=== PATIENT | male | born 1985 | race Caucasian/White ===

== ENCOUNTER 2018-02-06 17:01 | Emergency (ER) | payer SELFPAY ==
[~2018-02-06] VITALS: Ht 154.9 cm; Wt 56.7 kg
[2018-02-06 17:01] VITALS: Ht 154.9 cm; Wt 56.7 kg
[~2018-02-06 17:01] MED LIST: GABA-113 PO; IBUP-1050 PO
[2018-02-06] MEDS ORDERED: ACETAMINOPHEN 500 MG TAB PO STA (17:31)
--- NOTE | 2018-02-06 17:40 | EMERGENCY ROOM VISIT NOTE ---
History First contact with patient: 17:15 Chief Complaint: ABDOMINAL PAIN Stated Complaint: BACK PAIN Nursing Triage Summary: Patient arrived via BLS from home. Patient has back pain from misaligned spine. Patient c/o abdominal pain after getting home from work today at noon. Nausea associated, denies vomitting. Patient c/o eyes burning and CP, denies SOB. History of Present Illness The patient is a 32 year old male who presents to the Emergency Room with complaints of all over pain that started at 11 AM this morning. The history is limited secondary to possible mental delay versus altered mental status. The patient is complaining of a headache, back pain and abdominal pain. He denies any vomiting. He does occasionally have constipation. He denies any sick contacts. Review of Systems Unable to perform secondary to altered mental status versus mental delay Past Medical/Surgical History Medical Problems: (1) Hernia (2) Hypertension (3) Shingles Family History Diabetes mellitus Hypertension Social History Smoking Status: Former Smoker Drug Use: none Marital Status: single Occupation Status: employed Current/Historical Medications Scheduled PRN Hydrocodone/Acetaminophen 5MG/325MG ([place] 5MG/325MG), 1-2 TABLET PO Q4H PRN for Pain Physical Exam Vital Signs Date Time Temp Pulse Resp B/P (MAP) Pulse Ox O2 Delivery O2 Flow Rate FiO2 02/06/18 23:19 59 18 102/61 97 Room Air 02/06/18 20:57 37.5 02/06/18 20:54 72 18 107/62 96 Room Air 02/06/18 19:25 38.9 02/06/18 18:22 80 18 117/71 98 Room Air 02/06/18 17:01 38.7 85 18 119/68 98 Room Air Physical Exam VITALS: Vitals are noted on the nurse's note and reviewed by myself. Vital signs stable. GENERAL: 32-year-old male, speech is slightly slurred and slow SKIN: The skin was without rashes, erythema, edema, or bruising. HEAD: Normocephalic atraumatic. EYES: Pupils equal round and reactive to light and accommodation. Conjunctivae without injection, sclerae without icterus. Extraocular movements intact. MOUTH: Mucous membranes slightly dry NECK: Supple without nuchal rigidity. No lymphadenopathy. Cervical spine is nontender. No JVD. HEART: Regular rate and rhythm without murmurs gallops or rubs. LUNGS: Clear to auscultation bilaterally without wheezes, rales or rhonchi. No accessory muscle use. ABDOMEN: Positive bowel sounds x 4.Soft, mild diffuse tenderness to palpation, without organomegaly. No guarding or rebound tenderness. MUSCULOSKELETAL: No muscle atrophy, erythema, or edema noted.. Strength 5/5 throughout. NEURO: Patient was alert and oriented to person place and time. His speech is slurred. He does follow basic commands. Medical Decision & Procedures ER Provider Diagnostic Interpretation: CT abdomen and pelvis IMPRESSION: 1. Mild circumferential bladder wall thickening suggested. This could suggest cystitis. Correlate with urinalysis. Hyperenhancement of the bulbar urethra would also be compatible with the diagnosis of infectious cystitis/urethritis. 2. No other evidence of acute intra-abdominal pathology. Electronically signed by: Layton Yi M.D. 02/06/2018 9:22 PM Dictated Date/Time: 02/06/2018 9:17 PM The status of this report is Signed. Draft = Not yet reviewed or approved by Radiologist. Signed = Reviewed and approved by Radiologist. CT head IMPRESSION: 1. No acute intracranial abnormality. Electronically signed by: Layton Yi M.D. 02/06/2018 9:00 PM Dictated Date/Time: 02/06/2018 8:58 PM CXR IMPRESSION: 1. No acute cardiopulmonary disease. Electronically signed by: Layton Yi M.D. 02/06/2018 6:05 PM Dictated Date/Time: 02/06/2018 6:05 PM The status of this report is Signed. Draft = Not yet reviewed or approved by Radiologist. Signed = Reviewed and approved by Radiologist. <AttendingPhy></AttendingPhy> <FamilyPhy>Lashonda Casillas M.D. (MEDICAL)</ FamilyPhy> <PrimaryPhy>Lashonda Casillas M.D. (MEDICAL)</PrimaryPhy> <UnitNumber> [id number]</UnitNumber> <VisitNumber Laboratory Results 02/06/18 17:18 Red Blood Count 4.92, Mean Corpuscular Volume 86.8, Mean Corpuscular Hemoglobin 30.9, Mean Corpuscular Hemoglobin Concent 35.6, Mean Platelet Volume 10.0, Neutrophils (%) (Auto) 87.0, Lymphocytes (%) (Auto) 6.3, Monocytes (%) (Auto) 6.5, Eosinophils (%) (Auto) 0.0, Basophils (%) (Auto) 0.1, Neutrophils # (Auto) 8.91, Lymphocytes # (Auto) 0.64, Monocytes # (Auto) 0.66, Eosinophils # (Auto) 0.00, Basophils # (Auto) 0.01 02/06/18 17:18 Test 02/06/18 17:18 02/06/18 17:39 02/06/18 19:21 02/06/18 20:42 White Blood Count 10.23 K/uL (4.8-10.8) Red Blood Count 4.92 M/uL (4.7-6.1) Hemoglobin 15.2 g/dL (14.0-18.0) Hematocrit 42.7 % (42-52) Mean Corpuscular Volume 86.8 fL (80-100) Mean Corpuscular Hemoglobin 30.9 pg (25-34) Mean Corpuscular Hemoglobin Concent 35.6 g/dl (32-36) Platelet Count 186 K/uL (130-400) Mean Platelet Volume 10.0 fL (7.4-10.4) Neutrophils (%) (Auto) 87.0 % Lymphocytes (%) (Auto) 6.3 % Monocytes (%) (Auto) 6.5 % Eosinophils (%) (Auto) 0.0 % Basophils (%) (Auto) 0.1 % Neutrophils # (Auto) 8.91 K/uL (1.4-6.5) Lymphocytes # (Auto) 0.64 K/uL (1.2-3.4) Monocytes # (Auto) 0.66 K/uL (0.11-0.59) Eosinophils # (Auto) 0.00 K/uL (0-0.5) Basophils # (Auto) 0.01 K/uL (0-0.2) RDW Standard Deviation 38.8 fL (36.4-46.3) RDW Coefficient of Variation 12.2 % (11.5-14.5) Immature Granulocyte % (Auto) 0.1 % Immature Granulocyte # (Auto) 0.01 K/uL (0.00-0.02) Anion Gap 3.0 mmol/L (3-11) Est Creatinine Clear Calc Drug Dose 81.7 ml/min Estimated GFR () 120.7 Estimated GFR (Non- 104.2 BUN/Creatinine Ratio 8.2 (10-20) Calcium Level 8.7 mg/dl (8.5-10.1) Total Bilirubin 1.0 mg/dl (0.2-1) Aspartate Amino Transf (AST/SGOT) 15 U/L (15-37) Alanine Aminotransferase (ALT/SGPT) 23 U/L (12-78) Alkaline Phosphatase 38 U/L (45-117) Total Creatine Kinase 171 U/L (39-308) Total Protein 7.1 gm/dl (6.4-8.2) Albumin 3.9 gm/dl (3.4-5.0) Globulin 3.2 gm/dl (2.5-4.0) Albumin/Globulin Ratio 1.2 (0.9-2) Bedside Lactic Acid Venous 1.07 mmol/L (0.90-1.70) Urine Color YELLOW Urine Appearance CLEAR (CLEAR) Urine pH 8.0 (4.5-7.5) Urine Specific [place] 1.007 (1.000-1.030) Urine Protein NEG (NEG) Urine Glucose (UA) NEG (NEG) Urine Ketones NEG (NEG) Urine Occult Blood NEG (NEG) Urine Nitrite NEG (NEG) Urine Bilirubin NEG (NEG) Urine Urobilinogen NEG (NEG) Urine Leukocyte Esterase NEG (NEG) Urine Opiates Screen POS (NEG) Urine Methadone, Qualitative NEG (NEG) Urine Barbiturates NEG (NEG) Urine Phencyclidine (PCP) Level NEG (NEG) Ur Amphetamine/Methamphetamine NEG (NEG) MDMA (Ecstasy) Screen NEG (NEG) Urine Benzodiazepines Screen NEG (NEG) Urine Cocaine Metabolite NEG (NEG) Urine Marijuana (THC) NEG (NEG) Lactic Acid Level 0.7 mmol/L (0.4-2.0) Test 02/06/18 22:20 CSF Color COLORLESS CSF Appearance CLEAR CSF WBC 1 /uL (0-5) CSF RBC 0 /uL (0) CSF Xanthrochromic NO XANTHOCHROMIA CSF Cell Count Tube # 4 CSF Chemistry Tube # 2 CSF Glucose 68 mg/dl (40-70) CSF Total Protein 34.5 mg/dl (15.0-45.0) Medications Administered Medications (Trade) Dose Ordered Sig/Tim Route Start Time Stop Time Status Last Admin Dose Admin Acetaminophen (Tylenol Tab) 1,000 mg NOW STAT PO 02/06/18 17:31 02/06/18 17:36 DC 02/06/18 18:20 1,000 MG Morphine Sulfate (MoRPHine SULFATE INJ) 4 mg Q1H PRN IV 02/06/18 17:45 02/07/18 00:21 DC 02/06/18 23:20 4 MG Sodium Chloride 1,000 ml @ 999 mls/hr Q1H1M ONCE IV 02/06/18 17:45 02/06/18 18:45 DC 02/06/18 18:21 999 MLS/HR Ketorolac Tromethamine (Toradol Inj) 30 mg NOW STAT IV 02/06/18 20:41 02/06/18 20:42 DC 02/06/18 20:51 30 MG ED Course Patient was seen and examined Vital signs including blood pressure were reviewed medications list was verified with patient Labs were obtained, and a saline lock was established The patient was medicated with Tylenol and morphine The patient was reassessed and more comfortable. We discussed the results of his workup. He voiced understanding. The case was also discussed with my supervising physician, Dr. Miller. A lumbar puncture was performed. Please see her note. Upon reassessment, the patient was requesting another dose of pain medication. He was given 1 more dose of morphine. We thoroughly reviewed his results. He voiced understanding. I reviewed discharge instructions the patient. They voiced understanding and had no further questions. Medical Decision Differential diagnosis: Infectious etiologies such as meningitis, encephalitis, bacterial tonsillitis, otitis media, appendicitis, choledocholithiasis, UTI, drug overdose were entertained among others This patient is a 32-year-old male presents to the emergency department with complaints of generalized pain. On exam, the patient's speech seemed to be slightly slurred. When his friend got to the bedside, he said that his mental status/speech were at baseline. The patient had good pain relief in the emergency department. A CT of the abdomen and pelvis revealed possible bladder wall inflammation. The patient's urinalysis is clean. He is not sexually active, and has not been for many years. I do not suspect STD. The etiology of his fever is unclear. Lumbar puncture was performed. No signs of meningitis. He had symptomatic relief in the emergency department. I advised very close follow-up with his primary care physician. He was also referred to a urologist for his CT scan findings. He was comfortable with this plan, and discharged in good condition This chart was completed in part utilizing [employer] Speech Voice Recognition software. Attempts were made to minimize the grammatical errors, random word insertions, pronoun errors and incomplete sentences. Any formal questions or concerns about the content, text or information contained within the body of this dictation should be directly addressed to the provider for clarification. Medication Reconcilliation Current Medication List: was personally reviewed by me Blood Pressure Screening Patient's blood pressure: Normal blood pressure Impression Primary Impression: Generalized pain Departure Information Dispostion Home / Self-Care Condition GOOD Prescriptions Hydrocodone/Acetaminophen 5MG/325MG ([place] 5MG/325MG) Tab 1-2 TABLET PO Q4H Y for Pain, #15 TAB For Initial Treatment Prov: Iza Cooley PA-C 02/06/18 Referrals Lashonda Casillas M.D. (MEDICAL) (PCP) Patient Instructions My [facility] Additional Instructions You were evaluated in the emergency department for pain. There was slight inflammation of the bladder on the CAT scan. Ibuprofen 600 mg every 6 hours for pain/fever [place] 1-2 tabs every 4 hours for severe pain. Do not drink alcohol or drive while taking this medication. This may be taken with ibuprofen, but avoid Tylenol. Please get plenty of rest and drink fluids such as Gatorade and water over the next several days It is very important to follow-up closely with your primary care physician. Please call first thing Thursday morning for a follow-up appointment. Please do not hesitate to return to the emergency department with any new, worsening or concerning symptoms It was a pleasure participating in your care today
[2018-02-06 17:45] LABS: BASO % 0.1 %; BASO ABS # 0.01 K/uL (0-0.2); HEMATOCRIT 42.7 % (42-52); HEMOGLOBIN 15.2 g/dL (14.0-18.0); IG# 0.01 K/uL (0.00-0.02); LYMPH % 6.3 %; LYMPH ABS # 0.64 K/uL (1.2-3.4); MEAN CELL VOLUME 86.8 fL (80-100); MEAN CORPUSCULAR HEMOGLOBIN 30.9 pg (25-34); MEAN CORPUSCULAR HGB CONC 35.6 g/dl (32-36); MONO % 6.5 %; MONO ABS # 0.66 K/uL (0.11-0.59); NEUT ABS # 8.91 K/uL (1.4-6.5); PLATELET COUNT 186 K/uL (130-400); RED CELL DISTRIBUTION WIDTH CV 12.2 % (11.5-14.5); RED CELL DISTRIBUTION WIDTH SD 38.8 fL (36.4-46.3); WHITE BLOOD COUNT 10.23 K/uL (4.8-10.8)
[2018-02-06] MEDS ORDERED: SODIUM CHLORIDE 0.9% 1000ML 1,000 ML IV ONE (17:45)
[2018-02-06] MEDS ORDERED: OPTIRAY 320 IV PRN (17:45)
[2018-02-06 17:55] LABS: ALBUMIN 3.9 gm/dl (3.4-5.0); CALCIUM 8.7 mg/dl (8.5-10.1); CREATININE 0.96 mg/dl (0.60-1.40); POTASSIUM 3.5 mmol/L (3.5-5.1)
[2018-02-06 17:58] LABS: TOTAL PROTEIN 7.1 gm/dl (6.4-8.2)
--- NOTE | 2018-02-06 18:06 | DIAGNOSTIC IMAGING REPORT ---
CHEST ONE VIEW PORTABLE CLINICAL HISTORY: 32 years-old Male presenting with fever. TECHNIQUE: Portable upright AP view of the chest was obtained. COMPARISON: None. FINDINGS: Cardiomediastinal silhouette normal. No focal opacity. No large effusion or pneumothorax. Osseous structures normal. Upper abdomen normal. IMPRESSION: 1. No acute cardiopulmonary disease. Electronically signed by: Layton Yi M.D. 02/06/2018 6:05 PM Dictated Date/Time: 02/06/2018 6:05 PM
[2018-02-06] MEDS: MoRPHine SULFATE 4 MG/ML 1 ML CARP\\VIAL IV PRN ×2 (18:20→23:20)
[2018-02-06] MEDS ORDERED: KETOROLAC TROMETHAMINE 30 MG/ML VIAL IV STA (20:41)
[2018-02-06] MEDS ORDERED: LIDOCAINE 1% BUFFERED INJ 5 ML VIAL INFIL ONE (20:45)
[2018-02-06 20:57] VITALS: TEMP 37.5
--- NOTE | 2018-02-06 21:02 | DIAGNOSTIC IMAGING REPORT ---
HEAD WITHOUT CONTRAST (CT) CLINICAL HISTORY: 32 years-old Male presenting with fever headache. TECHNIQUE: Multidetector CT imaging of the head was performed without the use of intravenous contrast. IV contrast: None. A dose lowering technique was used consistent with the principles of ALARA (as low as reasonably achievable). COMPARISON: None. CT DOSE (mGy.cm): The estimated cumulative dose is 825.67 mGy.cm. 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 Ventricles and sulci normal in size. Brain parenchyma normal in appearance with preserved mad[place]-white differentiation. No mass effect or midline shift. No hemorrhage or acute territorial infarct. No extra-axial fluid collection. Paranasal sinuses and mastoid air cells clear. Calvarium intact. IMPRESSION: 1. No acute intracranial abnormality. Electronically signed by: Layton Yi M.D. 02/06/2018 9:00 PM Dictated Date/Time: 02/06/2018 8:58 PM
--- NOTE | 2018-02-06 21:23 | DIAGNOSTIC IMAGING REPORT ---
ABD/PELVIS IV AND ORAL CONT CLINICAL HISTORY: 32 years-old Male presenting with fever abd pain. TECHNIQUE: Multidetector CT of the abdomen and pelvis was performed after the administration of oral and intravenous contrast. IV contrast: 94 mL of Optiray 320. A dose lowering technique was used consistent with the principles of ALARA (as low as reasonably achievable). COMPARISON: None. CT DOSE (mGy.cm): The estimated cumulative dose is 825.67. 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 Lung bases: Minimal basilar opacities, likely atelectasis. Normal heart size. No pericardial or pleural effusion. Liver: Normal morphology. No liver lesion. Patent hepatic vasculature. Biliary: No intrahepatic or extrahepatic biliary ductal dilatation. Normal gallbladder. Pancreas: Normal. Spleen: Normal. Adrenal glands: Normal. Kidneys and ureters: Normal. No hydronephrosis. Bladder: Circumferential bladder wall thickening. Pelvic organs: Prostate and seminal vesicles normal. Hyperenhancement of the bulbar urethra noted greater than expected. Bowel: Mild stool burden throughout the colon. The appendix is normal. No bowel obstruction. Peritoneal cavity: No free fluid or intraperitoneal gas. Lymph nodes: No enlarged lymph nodes in the abdomen or pelvis. Vasculature: Aorta and IVC patent and normal in caliber. Abdominal wall: Bilateral gynecomastia. Musculoskeletal: Normal. IMPRESSION: 1. Mild circumferential bladder wall thickening suggested. This could suggest cystitis. Correlate with urinalysis. Hyperenhancement of the bulbar urethra would also be compatible with the diagnosis of infectious cystitis/urethritis. 2. No other evidence of acute intra-abdominal pathology. Electronically signed by: Layton Yi M.D. 02/06/2018 9:22 PM Dictated Date/Time: 02/06/2018 9:17 PM
[2018-02-06 23:04] LABS: CSF GLUCOSE 68 mg/dl (40-70); CSF TOTAL PROTEIN 34.5 mg/dl (15.0-45.0)
--- NOTE | 2018-02-06 23:09 | EMERGENCY ROOM VISIT NOTE ---
ED Visit Note First contact with patient: 17:15 Lumbar Puncture Indication: Fever, headache Verbal consent was obtained after the risks and benefits were explained, including but not limited to headache, bleeding/clotting, scarring, infection, pain, and bone/joint/nerve damage. At this time, the risks of the procedure are less than the risks of NOT performing the procedure. A time out was taken and the correct patient and site identified. The patient was placed in the left lateral decubitus position and the back was prepped with betadine and draped in the standard fashion. The L3 intervertebral space was identified, anesthetized locally with 1% lidocaine without epinephrine, and the spinal needle was inserted through the skin with the bevel parallel to the dural fibers. The needle was carefully advanced into the lumbar cistern and 4 tubes of clear CSF was obtained. The stylet was replaced and the needle was removed. A bandaid was placed and the patient was placed in the supine position. The patient tolerated the procedure well and there were no complications.
[2018-02-06] MEDS ORDERED: HYDR-5688 PO (23:15)
[2018-02-06 23:19] VITALS: BP 102/61; PULSE 59; O2SAT 97
== END 2018-02-06 23:40 | disposition home or self-care (01) ==
LOC: C.EDB 17:01 → EDBD 17:01 → C.EDB 23:40
DX: R52 Pain, unspecified (principal); Z87.891 Personal history of nicotine dependence

== ENCOUNTER 2018-11-09 16:23 | Inpatient (IN) ==
[2018-11-09 17:11] LABS: Appearance Urine Clear (Clear); Bilirubin Urine Negative (Negative); Color Urine Yellow; Glucose Urine UA Negative (Negative); Ketones Urine Negative (Negative); Leukocyte Esterase Urine Negative (Negative); Nitrite Urine Negative (Negative); Protein Urine Negative (Negative); Specific Gravity Urine 1.021 (1.000-1.030); Urobilinogen Urine Negative (Negative)
[2018-11-09 17:35] LABS: Amphetamines+Metham, Urine Neg (Neg); Barbiturates, Urine Neg (Neg); Benzodiazepine, Urine Neg (Neg); Cocaine, Urine Neg (Neg); MDMA (Ecstacy), Urine Neg (Neg); Methadone, Urine Neg (Neg); Opiate, Urine Neg (Neg); Phencyclidine, Urine Neg (Neg)
[2018-11-09 18:05] LABS: Basophils # (auto) 0.02 K/uL (0-0.2); Basophils % (auto) 0.5 %; Eosinophils # (auto) 0.07 K/uL (0-0.5); Eosinophils % (auto) 1.7 %; Hematocrit (blood only) 39.9 % (42-52); Lymphocytes # (auto) 1.56 K/uL (1.2-3.4); Lymphocytes % (auto) 37.8 %; Mean Corpuscular Hgb Conc 35.1 g/dL (32-36); Mean Corpuscular Volume 87.1 fL (80-100); Mean Platelet Volume 10.9 fL (7.4-10.4); Monocytes # (auto) 0.38 K/uL (0.11-0.59); Monocytes % (auto) 9.2 %; Neutrophils % (auto) 50.8 %; Platelet Count 194 K/uL (130-400); RDW Coefficient of Variation 12.2 % (11.5-14.5); RDW Standard Deviation 38.7 fL (36.4-46.3); Red Blood Count 4.58 M/uL (4.7-6.1); White Blood Count 4.13 K/uL (4.8-10.8)
[2018-11-09 18:27] LABS: Albumin Level 3.5 gm/dl (3.4-5.0); BUN Creatinine Ratio 15.1 (10-20); Calcium 8.1 mg/dl (8.5-10.1); Creatinine Clr Calc Pharmacy 103.6 ml/min; Est GFR (African American) 139.7; Est GFR (Non-African American) 120.5; Potassium 3.3 mmol/L (3.5-5.1)
[2018-11-09 18:29] LABS: Acetaminophen < 2 ug/ml (10-30); Salicylate < 1.7 mg/dl (2.8-20)
[2018-11-09 18:37] LABS: Albumin Globulin Ratio 1.1 (0.9-2); Bilirubin,Total 0.4 mg/dl (0.2-1); Globulin 3.1 gm/dl (2.5-4.0); Total Protein 6.6 gm/dl (6.4-8.2)
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
[2018-11-09] MEDS ORDERED: MAGNESIUM HYDROXIDE SUSP 30 ML UDC PO PRN (19:12)
[2018-11-09] MEDS ORDERED: BISMUTH SUBSALICYLATE PER ML OMNICELL CHARGE PO PRN (19:12)
[2018-11-09] MEDS ORDERED: ALUMINUM/MAGNESIUM SUSP 30 ML UDC PO PRN (19:12)
[2018-11-09] MEDS ORDERED: ACETAMINOPHEN 325 MG TAB PO PRN (19:12)
[2018-11-09] MEDS ORDERED: SODIUM CHLORIDE 0.65% NA SOLN 45 ML (OCEAN) PRN (19:12)
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
--- NOTE | 2018-11-11 14:42 | Psychiatric Progress Note ---
Date of Service November 11, 2018 Impression / Recommendations Impression Edu is adjusting to the structure and support of the milieu, and finding his peers to be patient and kind. He is attending all groups saying that he is benefitting. He is not on meds at this point, and would like to continue so. Today he says he is not sure he is ready to go as his anxiety remains high, and I believe that he would benefit from ongoing talk therapy to reduce his anxiety to the point that he can function and return to work. (1) Major depress dis, severe: 11/10 -Most appropriate diagnosis at this time is adjustment disorder with depressed and anxious mood. -Differential includes MDD, bipolar II, PTSD. -Continue voluntary admission to the behavioral health unit. -Suicide checks for safety. -Attend to participate in groups and therapy, work on healthy coping skills and discharge safety plan. -Education provided regarding diagnosis and treatment options, including medications and therapy. Medications not necessarily indicated at this time given duration of symptoms. -Family meeting if indicated. -Refer for outpatient therapy. Monitor symptoms and continue to refine diagnosis. 11/10 - Improving, continue treatment. -Family meeting with friend from [facility]. -Refer for BCM and OP therapy. -Work on discharge safety plan and coping skills for urges to cut. 11/11 - Assist the patient to explore healthy coping strategies for anxiety - Continue with safety and aftercare planning Inventory Assets Strengths: Employed, willing for treatment Needs: Medication, outpatient therapy and psychiatric care Risk Factors Assessment Male: Yes : Yes Do You Have Access To A Gun?: No Health Problems: No Mental Health Diagnoses: Yes Substance Use Disorders: No Previous Attempt: Yes Family History of Suicide: Yes Previous Psychiatric Hospitalization: No Smoker: No Protective Factors Assessment : No Responsible for Young Children: No Employed: Yes Stable Relationships: No Supportive Family: No Good Rapport with Provider: No Interval History Identifying Information CINDY VELEZ is a 33-year-old M who currently lives in [place], has a history of ID, self injury by cutting, suicide attempt, and trauma but is not in psychiatric treatment, and was admitted on 11/09/18 19:12 on a 201 voluntary commitment for worsening mood and thoughts of harming himself. Chief Complaint "I'm doing pretty good.". Review of Systems Sleep Information Total Hours of Sleep: 5.5 Sleep Comments: pt on q-15 minute checks Meal Information Percent Meal Consumed - Breakfast: 100 Percent Meal Consumed - Lunch: 100 Percent Meal Consumed - Dinner: 100 Subjective Subjective Patient was seen & assessed and interval progress reviewed with Treatment Team. Edu says that he is appreciating being around the staff and peers who are willing to listen to him talk about his traumatic experiences. he feels that talking helps to bring down his anxiety. He says that he recognizes that he will be anxious when he returns to work or when he gets his car back and drives for the first time, but thinks that he is leaning enough to help him reduce his anxiety. He also likes being able to give his peers feeback on their problems. He denies any SI and says that he is "getting used to the environment.". Physical Exam Psychiatric Orientation: alert, oriented x 3 and cooperative Apperance: appropriately dressed and appropriately groomed Eye Contact: good eye contact Motor Behavior: steady gait and station and no abnormal motor movements Slowed Affect: + blunted affect Mood: + anxious mood Thought Process: goal directed thought process Thought Content: reality based without delusions Suicidal Thoughts: denies suicidal thoughts Homicidal Thoughts: denies homicidal thoughts Hallucinations: no auditory hallucinations and no visual hallucinations Cognition: recent memory grossly intact, remote memory grossly intact, attention grossly intact and language grossly intact Estimated Intelligence: + below average estimated intelligence Insight: + limited insight Judgement: + limited judgement Vital Signs (Past 24 Hours) Last Vital Signs Temp 36.3 C L 11/11/18 06:47 Pulse 48 L 11/11/18 06:48 Resp 16 11/11/18 06:47 BP 121/78 11/11/18 06:48 Pulse Ox 100 11/09/18 19:18 Results & Data Current Inpatient Medications Current Inpatient Medications: Current Inpatient Medications Acetaminophen (Tylenol) 650 mg PO Q4H PRN PRN Reason: Headache or Minor Fever Stop: 12/09/18 19:11 Al Hydrox/Mg Hydrox/Simethicone (Maalox) 30 ml PO Q4H PRN PRN Reason: GI Upset Stop: 12/09/18 19:11 Bismuth Subsalicylate (Kaopectate) 15 ml PO PRN PRN PRN Reason: Loose Stool Stop: 12/09/18 19:11 Hydroxyzine HCl (Vistaril) 50 mg PO HSZ PRN PRN Reason: Insomnia Stop: 12/09/18 19:11 Hydroxyzine HCl (Vistaril) 25 mg PO Q4H PRN PRN Reason: Anxiety Stop: 12/09/18 19:11 Magnesium Hydroxide (Milk Of Magnesia) 30 ml PO DAILY PRN PRN Reason: Heartburn Stop: 12/09/18 19:11 Sodium Chloride ([place] Nasal) 1 - 2 sprays NA PRN PRN PRN Reason: Nasal Dryness/Congestion Stop: 12/09/18 19:11 Post Discharge Appointments Primary Care Physician Name Of Family Doctor: Dr. Chirag Pughefonte [facility] (retired needs new ) CPT Code CPT Code 05028
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
== END 2018-11-15 18:45 | disposition home or self-care (01) | DRG 882 ==
LOC: ED 16:23 → 3S 19:12